=== PATIENT | female | born 1965 | race Caucasian/White ===

== ENCOUNTER → 2018-07-23 | Outpatient (CLI) | payer OTHER ==
--- NOTE | 2018-07-24 10:52 | MM ---
Reason for exam: screening (asymptomatic). Last mammogram was performed 6 years and 8 months ago. History: Patient is nulliparous. Physical Findings: A clinical breast exam by your physician is recommended on an annual basis and results should be correlated with mammographic findings. MG Screening Mammo w CAD Bilateral CC and MLO view(s) were taken. Prior study comparison: November 23, 2011, bilateral digital screening mammo w/CAD. October 07, 2010, bilateral digital screening mammo w/CAD. The breast tissue is heterogeneously dense. This may lower the sensitivity of mammography. Diffuse bilateral round and punctate calcifications. Some have increased from priors. No significant changes when compared with prior studies. ASSESSMENT: Benign, BI-RAD 2 RECOMMENDATION: Routine screening mammogram of both breasts in 1 year.
== END | disposition home or self-care (01) ==
LOC: RADMAMWWP 06:54
PROVIDERS: ATTEND Family Medicine
DX: Z12.31 Encounter for screening mammogram for malignant neoplasm of breast (principal)
CPT/HCPCS: 77067

== ENCOUNTER → 2020-05-07 | Outpatient (CLI) | payer OTHER ==
--- NOTE | 2020-05-10 09:42 | MM ---
Reason for exam: screening (asymptomatic). Last mammogram was performed 1 year and 9 months ago. History: Patient is nulliparous. Physical Findings: A clinical breast exam by your physician is recommended on an annual basis and results should be correlated with mammographic findings. MG Screening Mammo w CAD Bilateral CC and MLO view(s) were taken. Prior study comparison: July 23, 2018, bilateral MG screening mammo w CAD. November 23, 2011, bilateral digital screening mammo w/CAD. The breast tissue is heterogeneously dense. This may lower the sensitivity of mammography. Stable benign calcifications. There is no discrete abnormality. No significant changes when compared with prior studies. ASSESSMENT: Benign, BI-RAD 2 RECOMMENDATION: Routine screening mammogram of both breasts in 1 year.
== END | disposition home or self-care (01) ==
LOC: RADMAMWWP 16:18
PROVIDERS: ATTEND Family Medicine
DX: Z12.31 Encounter for screening mammogram for malignant neoplasm of breast (principal)
CPT/HCPCS: 77067

== ENCOUNTER → 2022-05-30 | Outpatient (CLI) | payer BC ==
--- NOTE | 2022-05-31 12:30 | MM ---
Reason for Exam: Screening (asymptomatic). Last mammogram was performed 2 year(s) and 0 month(s) ago. Patient History: Menarche at age 12. Patient has no children. Hormonal Contraceptives for 16 years from age 24 until age 40. Risk Values: [place]le 5 year model risk: 1.4%. NCI Lifetime model risk: 8.7%. Prior Study Comparison: 11/23/2011 Bilateral Screening Mammogram, [facility]. 07/23/2018 Bilateral Screening Mammogram, [facility]. 05/07/2020 Bilateral Screening Mammogram, [facility]. Tissue Density: The breast tissue is heterogeneously dense. This may lower the sensitivity of mammography. Findings: Analyzed By CAD. There are scattered and loosely grouped benign-appearing round calcifications throughout the bilateral breasts redemonstrated. Benign-appearing bilateral axillary lymph nodes are again seen. There is no suspicious new group of microcalcifications or new suspicious mass in either breast. Overall Assessment: Benign, BI-RAD 2 Management: Screening Mammogram of both breasts in 1 year. Some advise bilateral breast ultrasound surveillance in patients with background dense tissue . Electronically signed and approved by: Marcus Lowe M.D.
== END | disposition home or self-care (01) ==
LOC: RADMAMWWP 07:27
PROVIDERS: ATTEND Family Medicine
DX: Z12.31 Encounter for screening mammogram for malignant neoplasm of breast (principal)
CPT/HCPCS: 77063; 77067

== ENCOUNTER → 2022-06-22 | Day surgery (SDC) | payer BC, OTHER ==
[~2022-06-22] MED LIST: LACTATED RINGERS 1,000 ML IV SCH; LIDOCAINE 1% (10MG/ML) FOR IV START INTRADERMA ONE; PROPOFOL 10 MG/ML 20 ML VIAL IV ONE
[2022-06-22 08:23] VITALS: RESP 16; TEMP 97.8
--- NOTE | 2022-06-22 09:08 | P.GSHP ---
History of Present Illness H&P Date: 06/22/22 Chief Complaint: Screening colonoscopy Is a 57-year-old female who presents today for initial screening colonoscopy. Patient denies a significant GI complaints. Past Medical History Past Medical History: No Reported History History of Any Multi-Drug Resistant Organisms: None Reported Past Surgical History: No Surgical Hx Reported Past Anesthesia/Blood Transfusion Reactions: No Reported Reaction, Motion Sickness Smoking Status: Never smoker Medications and Allergies Home Medications Medication Instructions Recorded Confirmed Type Ibuprofen [Motrin Ib] 400 mg PO BID PRN 06/20/22 06/22/22 History Allergies Allergy/AdvReac Type Severity Reaction Status Date / Time mold Allergy Unknown Verified 06/22/22 08:20 Surgical - Exam Vital Signs Temp Pulse Resp BP Pulse Ox 97.8 F 84 16 139/86 100 06/22/22 08:22 06/22/22 08:22 06/22/22 08:22 06/22/22 08:22 06/22/22 08:22 - General well developed, well nourished, no distress - Eyes PERRL - ENT normal pinna - Neck no masses - Respiratory normal expansion - Cardiovascular Rhythm: regular - Abdomen Abdomen: soft, non tender Assessment and Plan Assessment: We'll perform screening colonoscopy
--- NOTE | 2022-06-22 09:10 | P.OP ---
Date of Procedure: 06/22/22 Preoperative Diagnosis: Screening colonoscopy Postoperative Diagnosis: Tortuous colon Mild diverticular changes Procedure(s) Performed: Colonoscopy Anesthesia: MAC Surgeon: Roderick Duran Pathology: none sent Condition: stable Disposition: PACU Description of Procedure: Patient's placed on the endoscopy table in the lateral position. She received IV digital rectal exam was performed. This revealed no ebonized. The flexible colonoscope was then placed the patient's anus and passed through the colon. The scope could not be passed into the proximal right colon secondary to tortuosity of the bowel. Scope withdrawn. The visualized right colon appeared normal. The transverse colon appeared normal. In the descending; was a few scattered diverticula. Scope was then brought back the rectum and this appeared normal. The colon was very tortuous. Scope was withdrawn for patient.. Patient was scheduled for a barium enema to visualize the proximal right colon and cecum.
[2022-06-22 09:34] VITALS: BP 124/84; PULSE 73
--- NOTE | 2022-06-22 12:01 | FL ---
EXAMINATION TYPE: FL barium enema w air contrast DATE OF EXAM: 06/22/2022 COMPARISON: NONE HISTORY: Incomplete colonoscopy. TECHNIQUE: A single contrast barium enema study is performed. A total of 23 seconds of fluoroscopic time was utilized during procedure and 27 images obtained. FINDINGS: Corrugator Helper view of the abdomen shows overall non-obstructive bowel gas pattern. Gas is demonstr ated throughout the colon from recent colonoscopy. No evidence of any mass or polyp, obstructing or constricting lesion throughout the colon. No signif icant diverticular disease is noted. Contrast reaches the cecum with a trace amount reflux into the t erminal ileum. Mild tortuosity of the colon most pronounced at the proximal transverse colon. IMPRESSION: Normal barium enema study.
== END | disposition home or self-care (01) ==
LOC: ORWHC2ENDO 07:47
PROVIDERS: ATTEND Surgery
DX: Z12.11 Encounter for screening for malignant neoplasm of colon (principal); K57.30 Diverticulosis of large intestine without perforation or abscess without bleeding; Z79.1 Long term (current) use of non-steroidal anti-inflammatories (NSAID)
CPT/HCPCS: 45378; 74280; J2704